=== PATIENT | female | born 1995 | race Caucasian/White ===

== ENCOUNTER 2018-11-10 21:38 | Emergency (ER) | payer MEDICAID, SELFPAY ==
[~2018-11-10] VITALS: Ht 157.5 cm; Wt 49.9 kg
[2018-11-10] MEDS ORDERED: IV NORMAL SALINE 1000ML BAG 1,000 ML IV ONE (22:30)
--- NOTE | 2018-11-10 23:37 | RAD ---
Indication:Vaginal bleeding in early , pain for one day. TECHNIQUE: Ultrasound OB less than 14 weeks COMPARISON: None FINDINGS: Cervix is closed and measures 3.6 cm in length. The uterus measures 10.5 x 4.9 x 6.2 cm. Subchorionic bleed is seen measuring 2.3 x 1.9 x 0.5 cm. Right ovary measures 2.7 x 3.4 x 2.1 cm. Left ovary measures 3.0 x 2.4 x 1.2 cm. Elongated gestation sac is seen. pole is seen with crown-rump length measuring 0.49 cm corresponding to gestation age of 6 weeks 2 day. No cardiac activity seen. No free pelvic fluid. IMPRESSION: 1. Abnormal shape gestation sac with pole corresponding to gestation age of 6 weeks 2 days demonstrating no cardiac activity. 2. Subchorionic bleed. Electronically signed by: Saturnino Cooper DO (11/10/2018 11:34 PM) [facility]
[2018-11-10 23:43] LABS: BASO # 0.1 x10^3/uL (0.0-0.2); BASO % 1 % (0-3); EOS # 0.2 x10^3/uL (0.0-0.7); EOS % 2 % (0-3); HEMATOCRIT 34.9 % (36.0-47.0); HEMOGLOBIN 11.2 g/dL (12.0-15.5); LYMPH # 2.5 x10^3/uL (1.0-4.8); LYMPH % 25 % (24-48); MEAN CORPUSCULAR HEMOGLOBIN 25 pg (25-35); MEAN CORPUSCULAR HGB CONC 32 g/dL (31-37); MEAN CORPUSCULAR VOLUME 78 fL (79-100); MONO # 0.7 x10^3/uL (0.0-1.1); MONO % 7 % (0-9); NEUT # 6.5 x10^3uL (1.8-7.7); NEUT % 66 % (31-73); PLATELET COUNT 257 x10^3/uL (140-400); RED BLOOD COUNT 4.46 x10^6/uL (3.50-5.40); WHITE BLOOD COUNT 9.9 x10^3/uL (4.0-11.0)
[2018-11-10 23:52] LABS: CREATININE 0.5 mg/dL (0.6-1.0); GFR 150.3; POTASSIUM 3.7 mmol/L (3.5-5.1)
[2018-11-10 23:58] LABS: ALBUMIN 3.4 g/dL (3.4-5.0); ALBUMIN/GLOBULIN RATIO 1.1 (1.0-1.7); TOTAL BILIRUBIN 0.2 mg/dL (0.2-1.0); TOTAL PROTEIN 6.4 g/dL (6.4-8.2)
[2018-11-11 00:10] VITALS: BP 95/55
--- NOTE | 2018-11-11 00:16 | PHYS DOC ---
Past Medical History Past Medical History: No Pertinent History (CORTEZ BROWN) Past Surgical History: Tonsillectomy, Other Additional Past Surgical Histo: left foot (CORTEZ BROWN) Alcohol Use: None Drug Use: None (CORTEZ BROWN) Adult General Chief Complaint Chief Complaint: ABDOMINAL PAIN IN HPI HPI Patient is a 23 year old F who is here with low abd cramping and reports of vaginal bleeding 2 days ago. She reports her LMP was in either Aug or September and she thinks she is about 8-9 weeks . Pt is A0. She reports the bleeding has stopped today and cramping is minimal. She went to local urgent car e to see if she could have an ultrasound to see if she miscarried and she had to leave before they could complete the test. She first declined any tests except an ultrasound. I recommended we draw blood so we could check HCG level and RH and she agreed but still declined pelvic exam. She denies any current vaginal bleeding, vaginal discharge or vaginal pain. (CORTEZ BROWN) Review of Systems Review of Systems Constitutional: Denies fever or chills Respiratory: Denies cough or shortness of breath [] Cardiovascular: No additional information not addressed in HPI [] GI: Denies abdominal pain, nausea, vomiting, bloody stools or diarrhea [] : Reports vaginal bleeding 2 d ago, Low pelvic cramping. Musculoskeletal: Denies back pain or joint pain [] Integument: Denies rash or skin lesions [] Neurologic: Denies headache, focal weakness or sensory changes [] All other systems were reviewed and found to be within normal limits, except as documented in this note. (CORTEZ BROWN) Current Medications Current Medications Current Medications Medications (Trade) Dose Ordered Sig/Marii Start Time Stop Time Status Last Admin Dose Admin Sodium Chloride 1,000 ml @ 1,000 mls/hr 1X ONCE 11/10/18 22:30 11/10/18 23:29 DC 11/10/18 23:31 1,000 MLS/HR (RAISSA MULTANI MD) Allergies Allergies Allergies Coded Allergies Type Severity Reaction Last Updated Verified naproxen Allergy Intermediate hives 08/30/14 Yes tramadol Allergy Intermediate hives 08/30/14 Yes (RAISSA MULTANI MD) Physical Exam Physical Exam Constitutional: Well developed, well nourished, no acute distress, non-toxic appearance. [] Neck: Normal range of motion, no tenderness, supple, no stridor. [] Cardiovascular:Heart rate regular rhythm, no murmur [] Lungs & Thorax: Bilateral breath sounds clear to auscultation [] Abdomen: Bowel sounds normal, soft, no tenderness, no masses, no pulsatile masses. Currently there is no pain on palpation of lower abd or pelvis. Skin: Warm, dry, no erythema, no rash. [] Back: No tenderness, no CVA tenderness. [] Extremities: No tenderness, no cyanosis, no clubbing, ROM intact, no edema. [] Neurologic: Alert and oriented X 3, normal motor function, normal sensory function, no focal deficits noted. [] Psychologic: Affect normal, judgement normal, mood normal. [] (CORTEZ BROWN) Current Patient Data Vital Signs Vital Signs Date Time Temp Pulse Resp B/P (MAP) Pulse Ox O2 Delivery O2 Flow Rate FiO2 11/11/18 00:10 72 16 95/55 (68) 100 Room Air 11/10/18 21:56 98.1 98.1 (RAISSA MULTANI MD) Lab Values Laboratory Tests Test 11/10/18 21:48 11/10/18 23:27 POC Urine HCG, Qualitative Hcg positive (Negative) White Blood Count 9.9 x10^3/uL (4.0-11.0) Red Blood Count 4.46 x10^6/uL (3.50-5.40) Hemoglobin 11.2 g/dL (12.0-15.5) L Hematocrit 34.9 % (36.0-47.0) L Mean Corpuscular Volume 78 fL (79-100) L Mean Corpuscular Hemoglobin 25 pg (25-35) Mean Corpuscular Hemoglobin Concent 32 g/dL (31-37) Red Cell Distribution Width 19.0 % (11.5-14.5) H Platelet Count 257 x10^3/uL (140-400) Neutrophils (%) (Auto) 66 % (31-73) Lymphocytes (%) (Auto) 25 % (24-48) Monocytes (%) (Auto) 7 % (0-9) Eosinophils (%) (Auto) 2 % (0-3) Basophils (%) (Auto) 1 % (0-3) Neutrophils # (Auto) 6.5 x10^3uL (1.8-7.7) Lymphocytes # (Auto) 2.5 x10^3/uL (1.0-4.8) Monocytes # (Auto) 0.7 x10^3/uL (0.0-1.1) Eosinophils # (Auto) 0.2 x10^3/uL (0.0-0.7) Basophils # (Auto) 0.1 x10^3/uL (0.0-0.2) Maternal Serum HCG Beta Subunit 2994 mIU/mL (0-5) H Sodium Level 141 mmol/L (136-145) Potassium Level 3.7 mmol/L (3.5-5.1) Chloride Level 104 mmol/L (98-107) Carbon Dioxide Level 26 mmol/L (21-32) Anion Gap 11 (6-14) Blood Urea Nitrogen 9 mg/dL (7-20) Creatinine 0.5 mg/dL (0.6-1.0) L Estimated GFR (Cockcroft-Gault) 150.3 BUN/Creatinine Ratio 18 (6-20) Glucose Level 100 mg/dL (70-99) H Calcium Level 9.0 mg/dL (8.5-10.1) Total Bilirubin 0.2 mg/dL (0.2-1.0) Aspartate Amino Transferase (AST) 14 U/L (15-37) L Alanine Aminotransferase (ALT) 16 U/L (14-59) Alkaline Phosphatase 74 U/L (46-116) Total Protein 6.4 g/dL (6.4-8.2) Albumin 3.4 g/dL (3.4-5.0) Albumin/Globulin Ratio 1.1 (1.0-1.7) Laboratory Tests 11/10/18 23:27 Laboratory Tests 11/10/18 23:27 (RAISSA MULTANI MD) EKG EKG [] (CORTEZ BROWN) Radiology/Procedures Radiology/Procedures US shows 6 week gestational sac and pole but no cardiac activity as well as a subchorionic bleed (CORTEZ BROWN) Course & Med Decision Making Course & Med Decision Making Pertinent Labs and Imaging studies reviewed. (See chart for details) Long discussion with pt and her mother about test results. Pt's HCG is low and she is not 100% sure of LMP so could be very early but she thought she was 8-9 weeks. Pt's ultrasound shows possible 6 week gestation sac without cardiac activity. I discussed that while this did not sound hopeful, I would recommend close f/u for repeat serum HCG level and possible repeat ultrasound. This could be early . Pt agrees with plan. I gave her name and number for [employer] [facility] OB. (CORTEZ BROWN) Course & Med Decision Making Staff Physician Addendum: I was working in the ER during the course of this patient's visit. I was available for consultation as needed, but I was not directly involved in the care of this patient. (RAISSA MULTANI MD) Dragon Disclaimer Dragon Disclaimer This electronic medical record was generated, in whole or in part, using a voice recognition dictation system. (CORTEZ BROWN) Departure Departure Impression: Primary Impression: Miscarriage, threatened, early Disposition: 01 HOME, SELF-CARE Condition: STABLE Referrals: NO PCP (PCP) ISAIAH MCCOLLUM MD, DONALD G Jr MD Patient Instructions: Threatened Miscarriage, [id number] Additional Instructions: Your ultrasound today was read as showing a sac in the uterus that looked around 6 weeks along but they could not visualize any cardiac activity from the baby. It is difficult to know how far along you are so we recommend a very close follow up with child neurologist to have your hormone repeated and possibly a repeat ultrasound. You need to push lots of fluids and rest. It is possible that you will start bleeding more and cramp if this is a miscarriage. We cannot tell with 100% certainty if this is a miscarriage at this time. Heating pad and tylenol for discomfort and rest. If you are b leeding very heavy, feel lightheaded or dizzy or pain is uncontrollable, please return to ER. CORTEZ BROWN November 11, 2018 00:16 RAISSA MULTANI MD November 19, 2018 21:23
== END 2018-11-11 00:33 | disposition home or self-care (01) ==
LOC: ER 21:38
DX: O20.0 Threatened abortion (principal); Z90.89 Acquired absence of other organs; Z88.8 Allergy status to other drugs, medicaments and biological substances; Z88.5 Allergy status to narcotic agent; Z3A.01 Less than 8 weeks gestation of pregnancy
CPT/HCPCS: 36415; 76801; 76817; 80053; 81025; 84702; 85025; 86901; 99285; J7030